=== PATIENT | female | born 1930 | race Caucasian/White ===

== ENCOUNTER 2016-11-01 09:30 | Outpatient (CLI) | payer MEDICARE, BC | END 2016-11-01 09:31 | disposition home or self-care (01) | DX: E11.9 Type 2 diabetes mellitus without complications (principal); I10 Essential (primary) hypertension; E78.5 Hyperlipidemia, unspecified ==

== ENCOUNTER 2016-12-05 08:29 | Day surgery (SDC) | payer MEDICARE, BC ==
[2016-12-05] MEDS ORDERED: LACTATED RINGERS 500 ML IV ONE (08:47)
[2016-12-05] MEDS ORDERED: TROPICAMIDE 1% OPHTH 2 ML DROPS OPTH ONE (09:00)
[2016-12-05] MEDS ORDERED: KETOROLAC 0.45% OPHTH DROPS OPTH ONE (09:00)
[2016-12-05] MEDS ORDERED: CYCLOPENTOLATE 1% OPHTH DROPS 2 ML OPTH ONE (09:00)
[2016-12-05] MEDS ORDERED: MIDAZOLAM 2 MG/2 ML VIAL IVP ONE (09:45)
[2016-12-05] MEDS ORDERED: METOPROLOL 5 MG/5 ML VIAL IVP ONE (09:45)
[2016-12-05] MEDS ORDERED: CHONDR SULF/HYALURONATE SYRINGE IO ONE (09:47)
[2016-12-05] MEDS ORDERED: EPINEPHrine 1 MG/ML AMP IO ONE (09:47)
[2016-12-05] MEDS ORDERED: levoFLOXacin 0.5% OPHTH DROPS 5 ML OPTH ONE (09:47)
[2016-12-05] MEDS ORDERED: BRIMONIDINE 0.2% OPHTH DROPS 5 ML OPTH ONE (09:47)
[2016-12-05] MEDS ORDERED: BSS/LIDOCAINE/EPINEPHRINE 1 ML SYRINGE IO ONE (09:47)
[2016-12-05] MEDS ORDERED: PROPARACAINE 0.5% OPHTH DROPS 15 ML OPTH ONE (09:47)
[2016-12-05] MEDS ORDERED: TETRACAINE 0.5% OPHTH DROPS 4 ML OPTH ONE (09:47)
== END 2016-12-05 08:30 | disposition home or self-care (01) ==
PROC: 08RK3JZ Replacement of Left Lens with Synthetic Substitute, Percutaneous Approach (ICD-10-PCS; principal; 2016-12-05 10:00)
DX: H25.12 Age-related nuclear cataract, left eye (principal); I10 Essential (primary) hypertension; E11.9 Type 2 diabetes mellitus without complications
CPT/HCPCS: 66984; V2632

== ENCOUNTER 2016-12-19 07:16 | Day surgery (SDC) | payer MEDICARE, BC ==
[2016-12-19] MEDS ORDERED: KETOROLAC 0.45% OPHTH DROPS OPTH ONE (07:42)
[2016-12-19] MEDS ORDERED: CYCLOPENTOLATE 1% OPHTH DROPS 2 ML OPTH ONE (07:42)
[2016-12-19] MEDS ORDERED: TROPICAMIDE 1% OPHTH 2 ML DROPS OPTH ONE (07:42)
[2016-12-19] MEDS ORDERED: LACTATED RINGERS 500 ML IV ONE (07:55)
[2016-12-19] MEDS ORDERED: MIDAZOLAM 2 MG/2 ML VIAL IVP ONE (09:10)
[2016-12-19] MEDS ORDERED: BRIMONIDINE 0.2% OPHTH DROPS 5 ML OPTH ONE (09:16)
[2016-12-19] MEDS ORDERED: PROPARACAINE 0.5% OPHTH DROPS 15 ML OPTH ONE (09:16)
[2016-12-19] MEDS ORDERED: EPINEPHrine 1 MG/ML AMP IO ONE (09:16)
[2016-12-19] MEDS ORDERED: levoFLOXacin 0.5% OPHTH DROPS 5 ML OPTH ONE (09:17)
[2016-12-19] MEDS ORDERED: CHONDR SULF/HYALURONATE SYRINGE IO ONE (09:17)
[2016-12-19] MEDS ORDERED: TETRACAINE 0.5% OPHTH DROPS 4 ML OPTH ONE (09:17)
[2016-12-19] MEDS ORDERED: BSS/LIDOCAINE/EPINEPHRINE 1 ML SYRINGE IO ONE (09:17)
== END 2016-12-19 07:17 | disposition home or self-care (01) ==
PROC: 08RJ3JZ Replacement of Right Lens with Synthetic Substitute, Percutaneous Approach (ICD-10-PCS; principal; 2016-12-19 08:45)
DX: H25.11 Age-related nuclear cataract, right eye (principal); E11.9 Type 2 diabetes mellitus without complications; I10 Essential (primary) hypertension
CPT/HCPCS: 66984; V2632

== ENCOUNTER 2018-02-27 08:32 | Outpatient (CLI) | payer MEDICARE, BC ==
[2018-02-27 12:53] LABS: HB2 TOTAL 13.4 g/dL; HEMOGLOBIN A1C 0.53 g/dL; HEMOGLOBIN A1C % 5.8 % (4.6-6.2)
[2018-02-27 13:20] LABS: ALBUMIN 4.4 g/dL (3.2-5.5); ALBUMIN/GLOBULIN RATIO 1.6 (1.0-2.2); ALKALINE PHOSPHATASE 102 IU/L (42-121); ALT ALANINE AMINOTRANSFERASE 20 IU/L (10-60); AST ASPARTATE AMINOTRANSFERASE 25 IU/L (10-42); BILIRUBIN,TOTAL 1.6 mg/dL (0.2-1.0); BUN - BLOOD UREA NITROGEN 20 mg/dL (6-20); CALCIUM 9.1 mg/dL (8.5-10.3); CARBON DIOXIDE - CO2 28 mmol/L (21-32); CHLORIDE 103 mmol/L (101-111); CHOL/HDL RATIO 2.3 (<4.4); CHOLESTEROL 142 mg/dL; CREATININE 0.9 mg/dL (0.4-1.0); GFR - MDRD 60 (>89); GLUCOSE 132 mg/dL (70-100); HDL CHOLESTEROL 62 mg/dL; LDL CHOLESTEROL,CALCULATED 71 mg/dL; LDL/HDL RATIO 1.1 (<4.4); SODIUM 138 mmol/L (135-145); TOTAL PROTEIN 7.1 g/dL (6.7-8.2); VLDL CHOLESTEROL 9 mg/dL
== END 2018-02-27 08:33 ==
LOC: LAB.WCP 08:32
PROVIDERS: ATTEND Family Medicine
DX: E78.5 Hyperlipidemia, unspecified (principal); E11.9 Type 2 diabetes mellitus without complications; F32.9 Major depressive disorder, single episode, unspecified
CPT/HCPCS: 36415; 80053; 80061; 83036; 83721

== ENCOUNTER 2018-05-28 10:02 | Outpatient (CLI) | payer MEDICARE, BC ==
--- NOTE | 2018-05-29 17:12 | Mammography Report ---
Procedure Date: 05/28/2018 Accession Number: [id number] / [id number] Procedure: MGN - Screening Mammo Dig Bilat CPT Code: FULL RESULT: EXAM: Screening Mammo Dig Bilat DATE: 05/28/2018 10:27 AM CLINICAL HISTORY: 88-year-old female presents for screening mammogram. TECHNIQUE: Bilateral CC and MLO views were obtained. COMPARISON: 01/25/2015, 08/07/2012, 05/25/2011, 04/13/2010. FINDINGS: The breasts demonstrate scattered fibroglandular densities bilaterally. There is a stable circumscribed hyperdense subareolar mass in the right breast. Coarse typically benign calcifications are seen in the left breast. No suspicious masses, clustered microcalcifications, or regions of architectural distortion are identified. IMPRESSION: Benign findings RECOMMENDATION: Routine annual screening unless otherwise clinically indicated. BIRADS CATEGORY 2: Benign findings STANDARD QUALIFYING STATEMENTS: 1. This examination was reviewed with the aid of Computer-Aided Detection (CAD). 2. A negative or benign imaging report should not delay biopsy if clinically suspicious findings are present. Consider surgical consultation if warrented. More than 5% of cancers are not identified by imaging. 3. Dense breasts may obscure an underlying neoplasm.
== END 2018-05-28 10:03 | disposition home or self-care (01) ==
LOC: DI.N 10:02
PROVIDERS: ATTEND Family Medicine
DX: Z12.31 Encounter for screening mammogram for malignant neoplasm of breast (principal)
CPT/HCPCS: 77067

== ENCOUNTER 2018-11-12 08:00 | Outpatient (CLI) | payer MEDICARE, BC ==
[2018-11-12 18:56] LABS: BASOPHILS # (AUTO) 0.1 10^3/uL (0.0-0.1); EOSINOPHILS # (AUTO) 0.1 10^3/uL (0.0-0.7); HGB - HEMOGLOBIN 12.4 g/dL (12.0-16.0); LYMPHOCYTES # (AUTO) 3.2 10^3/uL (1.5-3.5); LYMPHOCYTES % (AUTO) 36.3 %; MEAN CORPUSCULAR HEMOGLOBIN 32.3 pg (27.0-31.0); MEAN CORPUSCULAR HGB CONC 33.9 g/dL (32.0-36.0); MEAN CORPUSCULAR VOLUME 95.1 fL (81.0-99.0); MEAN PLATELET VOLUME 6.5 fL (7.9-10.8); MONOCYTES # (AUTO) 0.6 10^3/uL (0.0-1.0); MONOCYTES % (AUTO) 6.3 %; NEUTROPHILS # (AUTO) 4.9 10^3/uL (1.5-6.6); NEUTROPHILS % (AUTO) 55.4 %; PLT - PLATELET COUNT 322 10^3/uL (130-450); RED BLOOD COUNT 3.83 10^6/uL (4.20-5.40); RED CELL DISTRIBUTION WIDTH 13.6 % (12.0-15.0); WHITE BLOOD COUNT 8.8 x10^3/uL (4.8-10.8)
[2018-11-12 19:17] LABS: CREATININE,URINE 199.9 mg/dL; HB2 TOTAL 12.8 g/dL; HEMOGLOBIN A1C 0.5 g/dL; HEMOGLOBIN A1C % 5.7 % (4.6-6.2); MICROALBUM/CREATININE RATIO,UR 164.1 ug/mg (<30.0); MICROALBUMIN,URINE 32.8 mg/dL (0-300.0)
[2018-11-12 19:18] LABS: ALBUMIN 4.4 g/dL (3.2-5.5); ALBUMIN/GLOBULIN RATIO 1.5 (1.0-2.2); ALKALINE PHOSPHATASE 109 IU/L (42-121); ALT ALANINE AMINOTRANSFERASE 16 IU/L (10-60); AST ASPARTATE AMINOTRANSFERASE 24 IU/L (10-42); BILIRUBIN,TOTAL 1.3 mg/dL (0.2-1.0); BUN - BLOOD UREA NITROGEN 14 mg/dL (6-20); CALCIUM 8.2 mg/dL (8.5-10.3); CARBON DIOXIDE - CO2 29 mmol/L (21-32); CHLORIDE 95 mmol/L (101-111); CHOL/HDL RATIO 2.1 (<4.4); CHOLESTEROL 113 mg/dL; CREATININE 0.7 mg/dL (0.4-1.0); GFR - MDRD 79 (>89); GLUCOSE 135 mg/dL (70-100); HDL CHOLESTEROL 54 mg/dL; LDL CHOLESTEROL,CALCULATED 50 mg/dL; LDL/HDL RATIO 0.9 (<4.4); SODIUM 135 mmol/L (135-145); TOTAL PROTEIN 7.3 g/dL (6.7-8.2); VLDL CHOLESTEROL 9 mg/dL
== END 2018-11-12 23:59 | disposition home or self-care (01) ==
LOC: LAB.WCP 08:00
PROVIDERS: ATTEND Family Medicine
DX: E78.5 Hyperlipidemia, unspecified (principal); E11.9 Type 2 diabetes mellitus without complications; I10 Essential (primary) hypertension
CPT/HCPCS: 36415; 80053; 80061; 82043; 82570; 83036; 83721; 84443; 85025

== ENCOUNTER 2018-12-09 09:40 | Outpatient (CLI) | payer MEDICARE, BC ==
[2018-12-09 12:57] LABS: CALCIUM 9.1 mg/dL (8.5-10.3); CREATININE 0.7 mg/dL (0.4-1.0)
== END 2018-12-09 09:41 | disposition home or self-care (01) ==
LOC: LAB.WCP 09:40
PROVIDERS: ATTEND Family Medicine
DX: R19.7 Diarrhea, unspecified (principal); I10 Essential (primary) hypertension; E11.9 Type 2 diabetes mellitus without complications
CPT/HCPCS: 36415; 80048

== ENCOUNTER 2019-07-22 08:00 | Outpatient (CLI) | payer MEDICARE, BC ==
[2019-07-22 18:54] LABS: BASOPHILS # (AUTO) 0.1 10^3/uL (0.0-0.1); BASOPHILS % (AUTO) 0.5 %; EOSINOPHILS # (AUTO) 0.1 10^3/uL (0.0-0.7); EOSINOPHILS % (AUTO) 1.1 %; HGB - HEMOGLOBIN 12.5 g/dL (12.0-16.0); LYMPHOCYTES # (AUTO) 3.2 10^3/uL (1.5-3.5); MEAN CORPUSCULAR HEMOGLOBIN 31.3 pg (27.0-31.0); MEAN CORPUSCULAR HGB CONC 32.8 g/dL (32.0-36.0); MEAN CORPUSCULAR VOLUME 95.5 fL (81.0-99.0); MEAN PLATELET VOLUME 8.1 fL (7.9-10.8); MONOCYTES # (AUTO) 0.9 10^3/uL (0.0-1.0); MONOCYTES % (AUTO) 9.9 %; NEUTROPHILS % (AUTO) 54.1 %; PLT - PLATELET COUNT 256 10^3/uL (130-450); RED BLOOD COUNT 3.99 10^6/uL (4.20-5.40); RED CELL DISTRIBUTION WIDTH 13.4 % (12.0-15.0); WHITE BLOOD COUNT 9.3 x10^3/uL (4.8-10.8)
[2019-07-22 19:12] LABS: ALBUMIN 4.7 g/dL (3.2-5.5); ALBUMIN/GLOBULIN RATIO 1.7 (1.0-2.2); BILIRUBIN,TOTAL 1.8 mg/dL (0.2-1.0); CALCIUM 9.6 mg/dL (8.5-10.3); CREATININE 0.8 mg/dL (0.4-1.0); TOTAL PROTEIN 7.5 g/dL (6.7-8.2)
== END 2019-07-22 23:59 | disposition home or self-care (01) ==
LOC: LAB.WCP 08:00
PROVIDERS: ATTEND Family Medicine
DX: E78.5 Hyperlipidemia, unspecified (principal)
CPT/HCPCS: 36415; 80053; 84443; 85025

== ENCOUNTER 2020-05-18 07:06 | Outpatient (CLI) | payer MEDICARE, BC ==
--- NOTE | 2020-05-18 08:45 | Ultrasound Report ---
PROCEDURE: Duplex Ext Veins Right INDICATIONS: RT LEG EDEMA TECHNIQUE: Real-time imaging, as well as color and pulse Doppler interrogation, were performed of the lower extr emity deep veins from the inguinal ligament to the popliteal fossa. COMPARISON: None. FINDINGS: The deep veins are normally compressible, and free of intraluminal thrombus. Color and pu lse Doppler demonstrate normal phasic intraluminal flow. There is normal augmentation response to di stal compression maneuver. IMPRESSION: No DVT right leg. Reviewed by: Syd Chester MD on 05/18/2020 8:43 AM PDT Approved by: Syd Chester MD on 05/18/2020 8:43 AM PDT Station ID: [id number]
== END 2020-05-18 07:07 | disposition home or self-care (01) ==
LOC: DI 07:06
PROVIDERS: ATTEND Family Medicine
DX: R60.0 Localized edema (principal)

== ENCOUNTER 2020-10-18 08:00 | Outpatient (CLI) | payer MEDICARE, BC ==
[2020-10-18 18:58] LABS: BASOPHILS % (AUTO) 0.4 %; EOSINOPHILS # (AUTO) 0.1 10^3/uL (0.0-0.7); EOSINOPHILS % (AUTO) 0.8 %; HGB - HEMOGLOBIN 11.5 g/dL (12.0-16.0); LYMPHOCYTES # (AUTO) 2.9 10^3/uL (1.5-3.5); LYMPHOCYTES % (AUTO) 32.6 %; MEAN CORPUSCULAR HEMOGLOBIN 33.5 pg (27.0-31.0); MEAN CORPUSCULAR HGB CONC 33.8 g/dL (32.0-36.0); MEAN CORPUSCULAR VOLUME 99.1 fL (81.0-99.0); MEAN PLATELET VOLUME 8.6 fL (7.9-10.8); MONOCYTES # (AUTO) 0.7 10^3/uL (0.0-1.0); MONOCYTES % (AUTO) 7.3 %; NEUTROPHILS # (AUTO) 5.3 10^3/uL (1.5-6.6); NEUTROPHILS % (AUTO) 58.6 %; PLT - PLATELET COUNT 251 10^3/uL (130-450); RED BLOOD COUNT 3.43 10^6/uL (4.20-5.40); RED CELL DISTRIBUTION WIDTH 13.2 % (12.0-15.0)
[2020-10-18 19:34] LABS: ALBUMIN 4.6 g/dL (3.2-5.5); ALBUMIN/GLOBULIN RATIO 1.7 (1.0-2.2); ALKALINE PHOSPHATASE 72 IU/L (42-121); ALT ALANINE AMINOTRANSFERASE 17 IU/L (10-60); AST ASPARTATE AMINOTRANSFERASE 22 IU/L (10-42); BILIRUBIN,TOTAL 1.8 mg/dL (0.2-1.0); BUN - BLOOD UREA NITROGEN 36 mg/dL (6-20); CALCIUM 9.9 mg/dL (8.5-10.3); CARBON DIOXIDE - CO2 30 mmol/L (21-32); CHLORIDE 98 mmol/L (101-111); CHOL/HDL RATIO 2.4 (<4.4); CHOLESTEROL 121 mg/dL; CREATININE 1.1 mg/dL (0.4-1.0); GLUCOSE 111 mg/dL (70-100); HDL CHOLESTEROL 50 mg/dL; LDL CHOLESTEROL,CALCULATED 62 mg/dL; LDL/HDL RATIO 1.2 (<4.4); SODIUM 139 mmol/L (135-145); TOTAL PROTEIN 7.3 g/dL (6.7-8.2); VLDL CHOLESTEROL 9 mg/dL
[2020-10-18 20:14] LABS: HEMOGLOBIN A1c% 5.7 % (4.27-6.07)
== END 2020-10-18 23:59 | disposition home or self-care (01) ==
LOC: LAB.WCP 08:00
PROVIDERS: ATTEND Physician Assistant
DX: I10 Essential (primary) hypertension (principal); E78.5 Hyperlipidemia, unspecified; E11.9 Type 2 diabetes mellitus without complications
CPT/HCPCS: 36415; 80053; 80061; 83036; 83721; 85025

== ENCOUNTER 2021-03-07 08:00 | Outpatient (CLI) | payer MEDICARE, BC ==
[2021-03-07 17:58] LABS: BASOPHILS % (AUTO) 0.4 %; EOSINOPHILS % (AUTO) 0.1 %; HCT - HEMATOCRIT 31.6 % (37.0-47.0); HGB - HEMOGLOBIN 10.9 g/dL (12.0-16.0); LYMPHOCYTES # (AUTO) 2.2 10^3/uL (1.5-3.5); LYMPHOCYTES % (AUTO) 26.1 %; MEAN CORPUSCULAR HEMOGLOBIN 32.9 pg (27.0-31.0); MEAN CORPUSCULAR HGB CONC 34.5 g/dL (32.0-36.0); MEAN CORPUSCULAR VOLUME 95.5 fL (81.0-99.0); MEAN PLATELET VOLUME 8.2 fL (7.9-10.8); MONOCYTES # (AUTO) 0.8 10^3/uL (0.0-1.0); MONOCYTES % (AUTO) 9.4 %; NEUTROPHILS # (AUTO) 5.3 10^3/uL (1.5-6.6); NEUTROPHILS % (AUTO) 63.6 %; PLT - PLATELET COUNT 254 10^3/uL (130-450); RED BLOOD COUNT 3.31 10^6/uL (4.20-5.40); RED CELL DISTRIBUTION WIDTH 13.2 % (12.0-15.0); WHITE BLOOD COUNT 8.3 x10^3/uL (4.8-10.8)
[2021-03-07 18:06] LABS: ESTIMATED AVERAGE GLUCOSE 103 mg/dL (70-100); HEMOGLOBIN A1c% 5.2 % (4.27-6.07)
[2021-03-07 18:17] LABS: ALBUMIN 4.3 g/dL (3.2-5.5); ALBUMIN/GLOBULIN RATIO 1.5 (1.0-2.2); ALKALINE PHOSPHATASE 87 IU/L (42-121); ALT ALANINE AMINOTRANSFERASE 20 IU/L (10-60); AST ASPARTATE AMINOTRANSFERASE 29 IU/L (10-42); BILIRUBIN,TOTAL 2.3 mg/dL (0.2-1.0); BUN - BLOOD UREA NITROGEN 20 mg/dL (6-20); CALCIUM 10.1 mg/dL (8.5-10.3); CARBON DIOXIDE - CO2 28 mmol/L (21-32); CHLORIDE 86 mmol/L (101-111); CHOL/HDL RATIO 2.2 (<4.4); CHOLESTEROL 99 mg/dL; GFR - MDRD 52 (>89); GLUCOSE 97 mg/dL (70-100); HDL CHOLESTEROL 46 mg/dL; LDL CHOLESTEROL,CALCULATED 42 mg/dL; LDL/HDL RATIO 0.9 (<4.4); POTASSIUM 3.2 mmol/L (3.5-5.0); PREALBUMIN 21 mg/dL (18-45); SODIUM 130 mmol/L (135-145); TOTAL PROTEIN 7.2 g/dL (6.7-8.2); TRIGLYCERIDES 57 mg/dL; VLDL CHOLESTEROL 11 mg/dL
== END 2021-03-07 23:59 | disposition home or self-care (01) ==
LOC: LAB.WCP 08:00
PROVIDERS: ATTEND Family Medicine
DX: R63.4 Abnormal weight loss (principal); E11.9 Type 2 diabetes mellitus without complications
CPT/HCPCS: 36415; 80053; 80061; 83036; 83721; 84134; 85025

== ENCOUNTER 2021-03-18 06:50 | Outpatient (CLI) | payer MEDICARE, BC ==
--- NOTE | 2021-03-18 13:53 | Ultrasound Report ---
PROCEDURE: Abdomen Complete INDICATIONS: HYPERBILIRUBINEMIA, LOSS OF WEIGHT TECHNIQUE: Real-time scanning was performed of the abdominal and retroperitoneal organs, with image documentatio n. COMPARISON: None. FINDINGS: Liver: Liver is normal in size and homogeneous in echotexture, mildly hyperechoic consistent with fa tty infiltration.. Gallbladder: The gallbladder contains at least one stone, large, measuring up to 2.2 x 1.1 cm, nonmob ile. The gallbladder wall is abnormal in thickness at 7 mm. Biliary ducts: Intrahepatic bile ducts are non-dilated. Extrahepatic bile duct caliber measures 7.0 mm. Normal is 6-7 mm or less in diameter, or 10 mm or less post-cholecystectomy. Pancreas: Visualized portions of the pancreas are sonographically normal. Spleen: Spleen is normal in size and homogeneous in echotexture. Kidneys: Kidneys are normal in size and echotexture. Right kidney measures 9.8 cm long; left kidney measures 9.8 cm long. No hydronephrosis or nephrolithiasis. No solid masses. Nonobstructive 6 mm inferior left renal collecting system calculus incidentally noted. Aorta: Visualized aorta is normal in caliber at less than 3 cm. Iliacs: Proximal common iliac arteries are normal in caliber at less than 2.5 cm. IVC: Intrahepatic inferior vena cava is patent. Miscellaneous: No free abdominal fluid. IMPRESSION: 1. Mild hepatic steatosis. 2. At least one relatively large gallstone is present within the gallbladder lumen, with associated a bnormal gallbladder wall thickness. Both chronic and acute cholecystitis could produce this appearanc e. Please correlate clinically for whether surgical consultation is warranted at this time. 3. Note is made of a inferior left renal collecting system nonobstructive stone measuring up to 6 mm. Reviewed by: Syd Chester MD on 03/18/2021 12:52 PM [facility] Approved by: Syd Chester MD on 03/18/2021 12:52 PM [facility] Station ID: [id number]
== END 2021-03-18 06:51 | disposition home or self-care (01) ==
LOC: DI 06:50
PROVIDERS: ATTEND Family Medicine
DX: K76.0 Fatty (change of) liver, not elsewhere classified (principal); K80.20 Calculus of gallbladder without cholecystitis without obstruction; N20.0 Calculus of kidney

== ENCOUNTER 2021-06-12 09:37 | Outpatient (CLI) | payer MEDICARE, BC ==
[2021-06-12] MEDS ORDERED: IOPAMIDOL-300 50 ML VIAL ONE (09:47)
[2021-06-12] MEDS ORDERED: IOVERSOL 320 50 ML VIAL ONE (09:47)
[2021-06-12] MEDS ORDERED: IOVERSOL 320 50 ML VIAL PO ONE (11:24)
[2021-06-12] MEDS ORDERED: IOPAMIDOL-300 50 ML VIAL IVP ONE (11:24)
--- NOTE | 2021-06-12 14:48 | CT Report ---
PROCEDURE: Abdomen/Pelvis W INDICATIONS: HYPERBILRUBINEMIA, LOSS OF WEIGHT CONTRAST: IV CONTRAST: Isovue 300 ml: 100 PO CONTRAST: Optiray 320 ml50 TECHNIQUE: After the administration of oral and intravenous contrast, 5 mm thick sections acquired from the diap hragms to the symphysis. 5 mm thick coronal and sagittal reformats were acquired. For radiation dos e reduction, the following was used: automated exposure control, adjustment of mA and/or kV accordin g to patient size. COMPARISON: None. FINDINGS: Image quality: Excellent. ABDOMEN: Lung bases: Lung bases are clear. Eventration of right hemidiaphragm. There are multiple small pulmo nary nodules in the right lung base, which may potentially indicate the presence of metastatic diseas e. Findings include 2 separate pulmonary nodules measuring 3 mm on image 4/4, 4 separate pulmonary no dules on image 10/4, the largest of which measures approximately 5 mm, and a pulmonary nodule on imag e 18/4. Heart size is normal. Moderate coronary artery disease. Small right hilar lymph node and lef t infrahilar lymph node. Solid organs: Liver and spleen are normal in size. There is ill-defined heterogeneous enhancement of the spleen, of uncertain significance. Cannot exclude a infiltrative process involving the spleen. G allbladder contains a probable large minimally dense gallstone. Biliary system is non dilated. Panc reas enhances normally. No adrenal nodules. Kidneys demonstrate normal size and enhancement, withou t hydronephrosis. Peritoneum and bowel: There is mild diffuse wall thickening of the sigmoid colon in a region that con tains diverticuli. Cannot exclude a focal circumferential lesion of the sigmoid colon in its proximal to midportion on image 72/9. This is not definite. No free fluid or air. Nodes and vessels: Periaortic adenopathy is somewhat suspicious for malignancy. There are numerous pe riaortic lymph nodes which are greater in size and number than typically seen. Shotty periportal dana opathy. Aorta and inferior vena cava are normal in size. Miscellaneous: No ventral hernias. PELVIS: Genitourinary: Bladder wall thickness is normal. Miscellaneous: No inguinal hernias or adenopathy. Bones: Question infiltrative process involving the right iliac bone. Consider Paget's disease versus infiltrative malignancy. Total right hip arthroplasty. No vertebral body compression fractures. IMPRESSION: 1. Numerous small pulmonary nodules in the right lung base raise the question of possible pulmonary m etastatic disease. 2. Para-aortic retroperitoneal adenopathy is somewhat suspicious for malignancy secondary to the size and number of lymph nodes present. 3. There is also shotty periportal adenopathy. 4. Heterogeneous enhancement of the spleen raises the question of possible infiltrative process invol ving the spleen. This is not definite. 5. Mild diffuse thickening of the sigmoid with associated diverticuli, possibly indicating evidence o f diverticulosis. Cannot exclude a focal concentric sigmoid lesion. Recommend direct visualization wi th colonoscopy. 6. Ill-defined process involving the right iliac bone. Consider possible Paget's disease versus infil trative malignancy. 7. Coronary artery disease. Reviewed by: Ángel Huston MD on 06/12/2021 2:47 PM PDT Approved by: Ángel Huston MD on 06/12/2021 2:47 PM PDT Station ID: [id number]
== END 2021-06-12 09:38 | disposition home or self-care (01) ==
LOC: LAB 09:37 → DI 09:38
PROVIDERS: ATTEND Surgery
DX: E80.6 Other disorders of bilirubin metabolism (principal); R91.8 Other nonspecific abnormal finding of lung field; R59.0 Localized enlarged lymph nodes; R93.89 Abnormal findings on diagnostic imaging of other specified body structures; K57.30 Diverticulosis of large intestine without perforation or abscess without bleeding; R93.7 Abnormal findings on diagnostic imaging of other parts of musculoskeletal system; I25.10 Atherosclerotic heart disease of native coronary artery without angina pectoris
CPT/HCPCS: 36415; 74177; 82565; Q9967

== ENCOUNTER 2021-08-15 07:38 | Outpatient (CLI) | payer MEDICARE, BC ==
--- NOTE | 2021-08-15 12:02 | Ultrasound Report ---
PROCEDURE: Abdomen Complete INDICATIONS: ABD LYMPHADENOPATHY TECHNIQUE: Real-time scanning was performed of the abdominal and retroperitoneal organs, with image documentatio n. COMPARISON: CT abdomen and pelvis dated 06/12/2021 FINDINGS: Liver: The liver demonstrates diffusely increased echogenicity and coarse echotexture without focal abnormalities which is consistent with chronic hepatocellular disease/hepatic steatosis. Gallbladder: There is a 2.3 cm nonmobile gallstone. No wall thickening. No pericholecystic fluid. Biliary ducts: Intrahepatic bile ducts are non-dilated. Extrahepatic bile duct caliber measures 7 m m. Normal is 6-7 mm or less in diameter, or 10 mm or less post-cholecystectomy. Pancreas: Visualized portions of the pancreas are sonographically normal. Spleen: Spleen is normal in size and homogeneous in echotexture. Kidneys: Kidneys are normal in size and echotexture. Right kidney measures 9.7 cm long; left kidney measures 10.0 cm long. No hydronephrosis or nephrolithiasis. No solid masses. Aorta: Visualized aorta is normal in caliber at less than 3 cm. Atherosclerotic plaques noted throu ghout the abdominal aorta. Iliacs: Proximal common iliac arteries are normal in caliber at less than 2.5 cm. IVC: Intrahepatic inferior vena cava is patent. Multiple enlarged periportal and retroperitoneal are again noted, similar in distribution compared to CT. The 2 largest are measured. One is visualized n ear the head of the pancreas measuring 2.4 x 2.1 x 1.6 cm. And the second is noted near the superior, medial aspect of the left kidney measuring 3.5 x 3.4 x 1.4 centers. Accounting for differences in im aging technique, these appear grossly stable compared to adenopathy seen on comparison CT. There is p reservation of reniform morphology and central fatty hilum of the perirenal lymph node described abov e. There is no definite fatty hilum noted near the pancreatic head. This is also similar to CT findin gs. Miscellaneous: No free abdominal fluid. IMPRESSION: 1. Persistent periportal and retroperitoneal adenopathy which accounting for differences in imaging t echnique appears grossly stable to CT of the abdomen/pelvis dated 06/12/2021. 2. Diffusely echogenic and coarsened liver echotexture suggestive of hepatic steatosis versus chronic hepatocellular disease. 3. A 2.3 cm nonmobile gallstone without sonographic findings to suggest acute cholecystitis. Recommen d clinical correlation. 4. Atherosclerotic vascular disease. No aneurysmal dilatation of the abdominal aorta. Reviewed by: Rey Williamson MD on 08/15/2021 12:01 PM PDT Approved by: Rey Williamson MD on 08/15/2021 12:01 PM PDT Station ID: [id number]
== END 2021-08-15 07:39 | disposition home or self-care (01) ==
LOC: DI 07:38
PROVIDERS: ATTEND Internal Medicine Hematology & Oncology
DX: R59.0 Localized enlarged lymph nodes (principal); K80.20 Calculus of gallbladder without cholecystitis without obstruction

== ENCOUNTER 2021-09-04 09:21 | Outpatient (CLI) | payer MEDICARE, BC ==
[2021-09-04 12:45] LABS: BASOPHILS % (AUTO) 0.4 %; EOSINOPHILS # (AUTO) 0.1 10^3/uL (0.0-0.7); EOSINOPHILS % (AUTO) 0.6 %; HCT - HEMATOCRIT 28.9 % (37.0-47.0); HGB - HEMOGLOBIN 8.9 g/dL (12.0-16.0); LYMPHOCYTES % (AUTO) 23.3 %; MEAN CORPUSCULAR HEMOGLOBIN 29.5 pg (27.0-31.0); MEAN CORPUSCULAR HGB CONC 30.8 g/dL (32.0-36.0); MEAN CORPUSCULAR VOLUME 95.7 fL (81.0-99.0); MEAN PLATELET VOLUME 8.2 fL (7.9-10.8); MONOCYTES % (AUTO) 11.9 %; NEUTROPHILS # (AUTO) 5.3 10^3/uL (1.5-6.6); NEUTROPHILS % (AUTO) 63.1 %; PLT - PLATELET COUNT 288 10^3/uL (130-450); RED BLOOD COUNT 3.02 10^6/uL (4.20-5.40); RED CELL DISTRIBUTION WIDTH 16.3 % (12.0-15.0); WHITE BLOOD COUNT 8.4 x10^3/uL (4.8-10.8)
[2021-09-04 13:24] LABS: ALBUMIN 3.7 g/dL (3.2-5.5); BILIRUBIN,TOTAL 0.9 mg/dL (0.2-1.0); CALCIUM 9.6 mg/dL (8.5-10.3); POTASSIUM 4.2 mmol/L (3.5-5.0); TOTAL PROTEIN 7.3 g/dL (6.7-8.2)
[2021-09-06 22:43] LABS: ABNORMAL PROTEIN BAND 1 0.2 g/dL (NONE DETECTED); ALBUMIN 3.4 g/dL (3.8-4.8); ALPHA 1 GLOBULIN 0.6 g/dL (0.2-0.3); ALPHA 2 GLOBULIN 1.1 g/dL (0.5-0.9); BETA 1 GLOBULIN 0.4 g/dL (0.4-0.6); BETA 2 GLOBULIN 0.2 g/dL (0.2-0.5); GAMMA GLOBULIN 0.9 g/dL (0.8-1.7)
== END 2021-09-04 23:59 | disposition home or self-care (01) ==
LOC: LAB.WCP 09:21
PROVIDERS: ATTEND Internal Medicine Hematology & Oncology
DX: R59.0 Localized enlarged lymph nodes (principal)
CPT/HCPCS: 36415; 80053; 82232; 83615; 84155; 84165; 85025

== ENCOUNTER 2021-09-21 09:44 | Outpatient (CLI) | payer MEDICARE, BC ==
[2021-09-21] MEDS: LACTATED RINGERS 1,000 ML IV ONE ×2 (10:30→11:50)
[2021-09-21 10:52] LABS: INR 1.4 (0.8-1.2); PT - PROTHROMBIN TIME 15.3 secs (9.9-12.6)
[2021-09-21 10:59] LABS: PARTIAL THROMBOPLASTIN TIME 30.4 secs (24.9-33.3)
[2021-09-21] MEDS ORDERED: MIDAZOLAM 2 MG/2 ML VIAL ONE (11:06)
[2021-09-21] MEDS ORDERED: fentaNYL 100 MCG/2 ML VIAL ONE (11:07)
[2021-09-21] MEDS: LIDOCAINE 1% 10 ML MDV SUBQ ONE (12:18)
[2021-09-21] MEDS: LIDOCAINE 1% 10 ML MDV ID ONE (12:42)
[2021-09-21 13:39] VITALS: BP 128/56
--- NOTE | 2021-09-21 16:14 | CT Report ---
PROCEDURE: BONE MARROW BX W/ASPIRATION Sedation analgesia for 20 minutes. INDICATIONS: LYMPHADENOPATHY, ANEMIA TECHNIQUE: The indications, alternatives, benefits, risks, and possible complications of the procedure were comm unicated to the patient. Informed written consent from the patient was obtained and placed in the art. Continuous EKG and hemodynamic monitoring was started by trained personnel. For radiation dose reduction, the following was used: automated exposure control, adjustment of mA and/or kV according to patient size. The patient was brought to the CT suite and vamp creaser spiral CT imaging was performed with localization g rid. The appropriate site for percutaneous access to the biopsy target was marked, was prepped and d raped sterilely, and was infused with local anaesthesia. Under CT guidance, a core biopsy trocar and needle set was advanced to the biopsy target, and specimen(s) were obtained. The trocar and needle were then removed, and the patient was sent for post-procedure monitoring. COMPARISON: None. FINDINGS: Biopsy site: Left iliac bone Needle: 10 gauge biopsy needle with introducer trocar. Number of passes: 1 Medications: 1% lidocaine for local anaesthesia. IV Fentanyl and Versed for conscious sedation for 20 minutes minutes (see nursing record). Complications: None. IMPRESSION: Successful CT-guided biopsy of left iliac bone. Reviewed by: Luz Elena Hagen MD, PhD on 09/21/2021 4:13 PM PST Approved by: Luz Elena Hagen MD, PhD on 09/21/2021 4:13 PM PST Station ID: [id number]
== END 2021-09-21 09:45 | disposition home or self-care (01) ==
LOC: DI 09:44
PROVIDERS: ATTEND Internal Medicine Hematology & Oncology
DX: R59.0 Localized enlarged lymph nodes (principal); D64.9 Anemia, unspecified
CPT/HCPCS: 36415; 38222; 85610; 85730; J7120

== ENCOUNTER 2021-10-05 01:51 | Outpatient (CLI) | payer MEDICARE, BC | END 2021-10-05 01:52 | disposition critical access hospital (66) | LOC: EMS 01:51 | DX: M25.562 Pain in left knee (principal); M25.462 Effusion, left knee | CPT/HCPCS: A0425; A0429 ==

== ENCOUNTER 2021-10-05 02:04 | Emergency (ER) | payer MEDICARE, BC ==
[2021-10-05] MEDS ORDERED: KETOROLAC 15 MG/ML VIAL IVP STA (02:17)
--- NOTE | 2021-10-05 02:23 | ED Physician Documentation ---
PD HPI Fall - Stated complaint Stated Complaint: GLF - History obtained from History obtained from: Patient, EMS - History of Present Illness Mechanism of injury: Lost balance Fall distance: Standing position (she says she was in kitchen, getting ice cream from the fridge, and fell/lost balance, does not remember it clearly but does not feel she fainted nor lost awareness.) Where injury occurred: Home Timing - onset: Yesterday Injury(ies) location: Left Lower Extremity (knee). No: Head, Neck, Chest, Abdomen Quality of pain: Aching, Sharp (with movement and with weight bearing. she states her knee did not hurt much at first, but got more painful into today. She says her knee gave out this evening when walking and she fell again, without any notable injury this time. Difficulty getting up due to knee.) Associated symptoms: No: LOC, AMS Worsens with: Movement, Palpation (weight bearing left knee hurts today and feeling of knee giving out with weight/bending.) Contributing factors: No: Anticoagulated, Intoxicated Similar symptoms before: Has not had sx before Recently seen: Clinic (had bone marrow biopsy 2 days ago for eval of anemia and possible leukemia. Results pending. Did receive some sedation with the procedure. Denies much pain at the iliac crest site.) Review of Systems Constitutional: denies: Fever, Chills Nose: denies: Rhinorrhea / runny nose, Congestion Throat: denies: Sore throat Cardiac: denies: Chest pain / pressure Respiratory: denies: Cough GI: denies: Abdominal Pain, Vomiting, Diarrhea, Bloody / black stool PD PAST MEDICAL HISTORY - Past Medical History Cardiovascular: Hypertension Respiratory: None Endocrine/Autoimmune: Type 2 diabetes GI: None : None HEENT: None Psych: None Musculoskeletal: Osteoarthritis Derm: None - Past Surgical History General: Colonoscopy Ortho: Knee replacement, Shoulder arthroplasty HEENT: Cataracts - Present Medications Home Medications: Ambulatory Orders Medication Instructions Recorded Confirmed Aspirin [Aspir-Low] 81 mg PO DAILY 12/04/16 10/05/21 Carvedilol 12.5 mg PO DAILY 12/04/16 10/05/21 FLUoxetine [PROzac] 40 mg PO DAILY 12/04/16 10/05/21 metFORMIN [Glucophage] 500 mg PO BIDWM 12/04/16 10/05/21 Atorvastatin [Lipitor] 1 tab PO DAILY 07/25/21 10/05/21 Potassium Bicarbonate/Cit AC 10 meq PO BID 07/25/21 10/05/21 [Effer-K 10 Meq Tablet Eff] - Allergies Allergies/Adverse Reactions: Allergies Allergy/AdvReac Type Severity Reaction Status Date / Time No Known Drug Allergies Allergy Verified 10/05/21 02:26 - Social History Smoking Status: Never smoker PD ED PE NORMAL - Vitals Vital signs reviewed: Yes - General General: Alert and oriented X 3, Well developed/nourished - HEENT HEENT: Atraumatic, PERRL, EOMI, Pharynx benign, Other (denies vertigo with head movement. ) - Neck Neck: Supple, no meningeal sign, No adenopathy - Cardiac Cardiac: RRR, No murmur - Respiratory Respiratory: Clear bilaterally, Other (no chestwall tenderness. ) - Abdomen Abdomen: Soft, Non tender - Rectal Rectal: Deferred - Derm Derm: Normal color, Warm and dry - Extremities Extremities: No edema, No calf tenderness / cord, Other (left knee with mild effusion and tenderness. No redness nor warmth. Stress testing with some pain on valgus and with impacted rotation. Mild crepitance with ROM c/w arthritis or meniscal. ) - Neuro Neuro: Alert and oriented X 3, No motor deficit, No sensory deficit, Normal speech Results - Vitals Vitals: Vital Signs - 24 hr 10/05/21 10/05/21 10/05/21 02:04 02:49 03:40 Temperature 36.2 C L 36.4 C L Heart Rate 90 82 79 Respiratory 16 21 24 Rate Blood Pressure 139/58 H 117/53 L 104/49 L O2 Saturation 96 95 95 Oxygen O2 Source Room air - EKG (time done) 02:33 Rate: Rate (enter#) (85) Rhythm: NSR [place]: Normal Intervals: Normal NV QRS: Normal Ischemia: Normal ST segments. No: ST elevation c/w ischemia, ST depression - Labs Labs: Laboratory Tests 10/05/21 10/05/21 10/05/21 02:35 02:35 02:35 WBC 9.5 RBC 3.08 L Hgb 8.7 L Hct 27.6 L MCV 89.6 MCH 28.2 MCHC 31.5 L RDW 17.2 H Plt Count 201 MPV 7.8 L Neut # (Auto) 6.8 H Lymph # (Auto) 1.8 [place] # (Auto) 0.8 Eos # (Auto) 0.0 Baso # (Auto) 0.0 Absolute Nucleated RBC 0.00 Nucleated RBC % 0.0 Sodium 133 L Potassium 4.2 Chloride 96 L Carbon Dioxide 25 Anion Gap 12.0 BUN 26 H Creatinine 1.1 H Estimated GFR (MDRD) 47 L Glucose 156 H Calcium 9.9 Magnesium 1.7 Total Bilirubin 1.0 AST 26 ALT 21 Alkaline Phosphatase 106 Troponin I High Sens 26.5 H* Total Protein 7.1 Albumin 3.5 Globulin 3.6 Albumin/Globulin Ratio 1.0 Lipase 26 - Rads (name of study) left knee Radiology: Prelim report reviewed (arthritic, no fractures. ), See rad report PD MEDICAL DECISION MAKING - ED course Complexity details: reviewed results (arthritic changes in knee. no fractures. Clinically could consider meniscal with some pain on stress testing/ROM. Mild effusion. ), considered differential (initial fall last night could have been loss of balance or consider near syncope as she says she fell without really knowing why, but knee hurt as she turned. Labs and ECG here are good. Fall tonight seems knee giving out. ), d/w patient Departure - Departure Disposition: 01 Home, Self Care Clinical Impression: Knee strain Qualifiers: Encounter type: initial encounter Laterality: left Qualified Code(s): S86.912A - Strain of unspecified muscle(s) and tendon(s) at lower leg level, left leg, initial encounter Fall from slip, trip, or stumble Qualifiers: Encounter type: initial encounter Qualified Code(s): W01.0XXA - Fall on same level from slipping, tripping and stumbling without subsequent striking against object, initial encounter Condition: Stable Record reviewed to determine appropriate education?: Yes Instructions: ED Meniscal Injury Knee Poss Follow-Up: Babar Ruffin MD [Provider Admit Priv/Credential] - Comments: Knee x-ray shows some arthritis. You may be having some inflammation in the knee and difficulty bending it because of swelling from arthritis. Alternatively there may be some cartilage injury as well. Your chest x-ray and EKG and basic blood test do not show any acute abnormality. You do have chronic anemia and your blood count is similar to previous. I understand that is why they are doing a bone marrow biopsy recently. Stay well-hydrated. Continue usual medications. I would suggest using Tylenol 500 mg 4 times a day regularly for the next several days to week to help with your knee pain. You can follow-up with orthopedics if your knee is not improving well over the next several days to week. Use the knee brace when up and around to help support your knee as needed.
[2021-10-05 02:40] LABS: BASOPHILS % (AUTO) 0.2 %; EOSINOPHILS % (AUTO) 0.1 %; HCT - HEMATOCRIT 27.6 % (37.0-47.0); HGB - HEMOGLOBIN 8.7 g/dL (12.0-16.0); LYMPHOCYTES # (AUTO) 1.8 10^3/uL (1.5-3.5); LYMPHOCYTES % (AUTO) 19.1 %; MEAN CORPUSCULAR HEMOGLOBIN 28.2 pg (27.0-31.0); MEAN CORPUSCULAR HGB CONC 31.5 g/dL (32.0-36.0); MEAN CORPUSCULAR VOLUME 89.6 fL (81.0-99.0); MEAN PLATELET VOLUME 7.8 fL (7.9-10.8); MONOCYTES # (AUTO) 0.8 10^3/uL (0.0-1.0); MONOCYTES % (AUTO) 8.7 %; NEUTROPHILS # (AUTO) 6.8 10^3/uL (1.5-6.6); NEUTROPHILS % (AUTO) 71.3 %; PLT - PLATELET COUNT 201 10^3/uL (130-450); RED BLOOD COUNT 3.08 10^6/uL (4.20-5.40); RED CELL DISTRIBUTION WIDTH 17.2 % (12.0-15.0); WHITE BLOOD COUNT 9.5 x10^3/uL (4.8-10.8)
[2021-10-05 03:10] LABS: ALBUMIN 3.5 g/dL (3.2-5.5); CALCIUM 9.9 mg/dL (8.5-10.3); CREATININE 1.1 mg/dL (0.4-1.0); MAGNESIUM 1.7 mg/dL (1.7-2.8); POTASSIUM 4.2 mmol/L (3.5-5.0); TOTAL PROTEIN 7.1 g/dL (6.7-8.2)
[2021-10-05] MEDS ORDERED: ACETAMINOPHEN 325 MG TABLET PO STA (03:11)
[2021-10-05 04:47] VITALS: BP 118/60
--- NOTE | 2021-10-05 07:10 | XRAY Report ---
PROCEDURE: Chest 1 View X-Ray INDICATIONS: cough and congestion TECHNIQUE: One view of the chest was acquired. COMPARISON: None FINDINGS: Surgical changes and devices: Bilateral shoulder arthroplasties.. Lungs and pleura: No pleural effusions or pneumothorax. Lungs are clear. Elevated right hemidiaphra gm of uncertain etiology. Mediastinum: Mediastinal contours appear normal. Heart size is normal. Bones and chest wall: No suspicious bony lesions. Overlying soft tissues appear unremarkable. IMPRESSION: No acute cardiopulmonary disease process. Reviewed by: Luz Elena Hagen MD, PhD on 10/05/2021 7:08 AM [facility] Approved by: Luz Elena Hagen MD, PhD on 10/05/2021 7:08 AM [facility] Station ID: [id number]
--- NOTE | 2021-10-05 07:15 | XRAY Report ---
PROCEDURE: Knee 3 View LT INDICATIONS: fall onto left knee, with pain TECHNIQUE: views of the knee(s) were acquired. COMPARISON: None. FINDINGS: Bones: No fractures or dislocations. No suspicious bony lesions. Tricompartmental osteoarthritis. Soft tissues: No joint effusion. Chondrocalcinosis. IMPRESSION: No fracture. No acute osseous lesion. If there persistent symptoms or continued clinical concern for pathology, then repeat plain film radiographs (7-10 days) or advanced imaging (CT, MR, b one scan) should be considered for further evaluation. Reviewed by: Luz Elena Hagen MD, PhD on 10/05/2021 7:14 AM PST Approved by: Luz Elena Hagen MD, PhD on 10/05/2021 7:14 AM PST Station ID: [id number]
== END 2021-10-05 04:47 | disposition home or self-care (01) ==
LOC: EDUNIT# → ED 02:04
DX: S86.912A Strain of unspecified muscle(s) and tendon(s) at lower leg level, left leg, initial encounter (principal); W18.39XA Other fall on same level, initial encounter; Y93.01 Activity, walking, marching and hiking; Y92.009 Unspecified place in unspecified non-institutional (private) residence as the place of occurrence of the external cause
CPT/HCPCS: 36415; 71045; 73562; 80053; 83690; 83735; 84484; 85025; 93005; 96374; 99283; 99284; A9270